=== PATIENT | female | born 1975 | race Caucasian/White ===

== ENCOUNTER 2018-02-17 07:58 | Emergency (ER) | payer MEDICAID ==
[2018-02-17 09:02] LABS: ADD MAN DIFF? NO
[2018-02-17 09:07] LABS: BASOPHIL # 0.1 10^3/ul (0.0-0.1); BASOPHILS % 0.8 % (0.0-2.0); EOSINOPHILS # 1.2 10^3/ul (0.0-0.5); EOSINOPHILS % 13.2 % (0.0-7.0); HEMATOCRIT 40.1 % (37.0-47.0); HEMOGLOBIN 13.4 g/dl (12.0-16.0); LYMPHOCYTES # 2.6 10^3/ul (0.8-2.9); LYMPHOCYTES % 29.3 % (15.0-51.0); MEAN CORPUSCULAR HEMOGLOBIN 30.1 pg (29.0-33.0); MEAN CORPUSCULAR HGB CONC 33.4 g/dl (32.0-37.0); MEAN CORPUSCULAR VOLUME 90.1 fl (82.0-101.0); MEAN PLATELET VOLUME 10.1 fl (7.4-10.4); MONOCYTE # 0.7 10^3/ul (0.3-0.9); MONOCYTES % 7.7 % (0.0-11.0); NEUTROPHIL # 4.4 10^3/ul (1.6-7.5); NEUTROPHILS % 48.7 % (39.0-77.0); PLATELET COUNT 333 10^3/UL (140-415); RED BLOOD COUNT 4.45 10^6/ul (4.20-5.40); RED CELL DISTRIBUTION WIDTH 12.4 % (11.5-14.5)
[2018-02-17 09:16] LABS: ADD UMIC YES; UR ASCORBIC ACID NEGATIVE (NEGATIVE); UR BILIRUBIN (Dip) NEGATIVE (NEGATIVE); UR BLOOD (Dip) 3+ mg/dL (NEGATIVE); UR CLARITY SLIGHTLY CLOUDY (CLEAR); UR COLOR YELLOW (YELLOW); UR GLUCOSE (Dip) NEGATIVE (NEGATIVE); UR KETONES (Dip) NEGATIVE (NEGATIVE); UR LEUKOCYTE ESTERASE (Dip) NEGATIVE Leu/ul (NEGATIVE); UR MUCUS MODERATE /HPF (NONE SEEN); UR NITRITE (Dip) NEGATIVE (NEGATIVE); UR RBC 6 /HPF (0-5); UR SPECIFIC GRAVITY (Dip) 1.024 (1.003-1.030); UR SQUAMOUS EPITHELIAL CELL FEW /HPF (FEW); UR TOTAL PROTEIN (Dip) 1+ mg/dl (NEGATIVE); UR UROBILINOGEN (Dip) 1+ mg/dL (NEGATIVE); UR WBC 3 /HPF (0-5)
== END 2018-02-17 11:57 | disposition home or self-care (01) ==
LOC: FTE 07:58
DX: O20.9 Hemorrhage in early pregnancy, unspecified (principal); J45.909 Unspecified asthma, uncomplicated; O99.511 Diseases of the respiratory system complicating pregnancy, first trimester; O24.311 Unspecified pre-existing diabetes mellitus in pregnancy, first trimester; E03.9 Hypothyroidism, unspecified; O99.281 Endocrine, nutritional and metabolic diseases complicating pregnancy, first trimester
CPT/HCPCS: 36415; 76801; 76817; 81001; 84702; 85025; 86900; 86901; 99284-25

== ENCOUNTER 2018-02-19 17:56 | Observation (INO) | payer MEDICAID ==
[2018-02-19] MEDS: KETOROLAC 30 MG INJ IM (18:43)
[2018-02-19 18:45] LABS: ADD MAN DIFF? NO
[2018-02-19 18:48] LABS: BASOPHIL # 0.1 10^3/ul (0.0-0.1); BASOPHILS % 0.5 % (0.0-2.0); EOSINOPHILS # 0.6 10^3/ul (0.0-0.5); EOSINOPHILS % 5.5 % (0.0-7.0); HEMATOCRIT 36.2 % (37.0-47.0); HEMOGLOBIN 12.1 g/dl (12.0-16.0); LYMPHOCYTES # 3.7 10^3/ul (0.8-2.9); LYMPHOCYTES % 34.4 % (15.0-51.0); MEAN CORPUSCULAR HGB CONC 33.4 g/dl (32.0-37.0); MEAN CORPUSCULAR VOLUME 89.8 fl (82.0-101.0); MEAN PLATELET VOLUME 9.9 fl (7.4-10.4); MONOCYTE # 0.6 10^3/ul (0.3-0.9); MONOCYTES % 5.9 % (0.0-11.0); NEUTROPHIL # 5.7 10^3/ul (1.6-7.5); NEUTROPHILS % 53.5 % (39.0-77.0); PLATELET COUNT 329 10^3/UL (140-415); RED BLOOD COUNT 4.03 10^6/ul (4.20-5.40); RED CELL DISTRIBUTION WIDTH 12.2 % (11.5-14.5)
[2018-02-19 18:48] LABS: WHITE BLOOD COUNT 10.7 10^3/ul (4.8-10.8)
[2018-02-19 18:59] LABS: ADD UMIC YES; UR ASCORBIC ACID NEGATIVE (NEGATIVE); UR BACTERIA FEW /HPF (NONE SEEN); UR BILIRUBIN (Dip) NEGATIVE (NEGATIVE); UR BLOOD (Dip) 3+ mg/dL (NEGATIVE); UR CLARITY SLIGHTLY CLOUDY (CLEAR); UR COLOR YELLOW (YELLOW); UR GLUCOSE (Dip) NEGATIVE (NEGATIVE); UR KETONES (Dip) TRACE mg/dL (NEGATIVE); UR LEUKOCYTE ESTERASE (Dip) NEGATIVE Leu/ul (NEGATIVE); UR MUCUS FEW /HPF (NONE SEEN); UR NITRITE (Dip) NEGATIVE (NEGATIVE); UR RBC > 182 /HPF (0-5); UR SPECIFIC GRAVITY (Dip) 1.019 (1.003-1.030); UR SQUAMOUS EPITHELIAL CELL FEW /HPF (FEW); UR TOTAL PROTEIN (Dip) NEGATIVE (NEGATIVE); UR UROBILINOGEN (Dip) NEGATIVE (NEGATIVE); UR WBC 6 /HPF (0-5)
[2018-02-19 19:10] LABS: ALANINE AMINOTRANSFERASE 27 IU/L (13-69); ALBUMIN 4.3 g/dl (3.3-4.9); ALKALINE PHOSPHATASE 80 IU/L (42-121); ANION GAP 9 (5-13); ASPARTATE AMINO TRANSFERASE 26 IU/L (15-46); BILIRUBIN,INDIRECT 0.2 mg/dl (0-1.1); BILIRUBIN,TOTAL 0.2 mg/dl (0.2-1.3); BLOOD UREA NITROGEN 11 mg/dl (7-20); CALCIUM 9.1 mg/dl (8.4-10.2); CARBON DIOXIDE 31 mmol/L (21-31); CHLORIDE 100 mmol/L (97-110); CREATININE 0.49 mg/dl (0.44-1.00); Estimated GFR > 60 mL/min (>60); GLUCOSE 85 mg/dl (70-220); LIPASE 50 U/L (23-300); POTASSIUM 3.8 mmol/L (3.5-5.1); SODIUM 140 mmol/L (135-144); TOTAL PROTEIN 7.6 g/dl (6.1-8.1)
[2018-02-19] MEDS ORDERED: KETOROLAC 30 MG INJ IV (21:30)
[2018-02-19] MEDS ORDERED: ACETAMINOPHEN 325 MG TAB PO (21:30)
[2018-02-20] MEDS: SOD CHLORIDE 0.9% 1,000 ML IV (01:58)
[2018-02-20] MEDS: ACCU-CHEK XX ×5 (05:24→21:00)
[2018-02-20] MEDS ORDERED: OXYTOCIN 10 UNIT INJ ×2 (07:00→19:47)
[2018-02-20] MEDS: HYDROmorphONE 1 MG/ML SYG IV (10:42)
[2018-02-20] MEDS: ONDANSETRON 4 MG INJ IV ×2 (14:41→22:25)
[2018-02-20] MEDS ORDERED: METOCLOPRAMIDE 10 MG INJ IV (19:00)
[2018-02-20] MEDS ORDERED: FENTAnyl 50 MCG/ML VIAL IV ×2 (19:00)
[2018-02-20] MEDS ORDERED: HYDROmorphONE 1 MG/5 ML IV SYRINGE IV (19:00)
[2018-02-20] MEDS ORDERED: ONDANSETRON 4 MG INJ IV (19:00)
[2018-02-20] MEDS ORDERED: FENTAnyl 50 MCG/ML VIAL (19:13)
[2018-02-20] MEDS ORDERED: PROPOFOL 20 ML (19:45)
[2018-02-20] MEDS ORDERED: SUCCINYLCHOLINE CHLORIDE 100 MG/5 ML SYG IV (19:45)
[2018-02-20] MEDS ORDERED: VASOPRESSIN 20 UNITS INJ (19:46)
[2018-02-20] MEDS: HYDROmorphONE 1 MG/5 ML IV SYRINGE IV (20:28)
[2018-02-20] MEDS ORDERED: HYDROCODONE/APAP (5/325) TAB PO (22:00)
[2018-02-20] MEDS ORDERED: DEXTROSE 50% 50 ML SYRINGE IV ×2 (22:30)
[2018-02-20] MEDS ORDERED: GLUCOSE GEL 15 GRAM TUBE BUCCAL (22:30)
[2018-02-20] MEDS ORDERED: GLUCOSE GEL 15 GRAM TUBE PO ×2 (22:30)
[2018-02-20] MEDS ORDERED: GLUCAGON 1 MG INJ IM (22:30)
[2018-02-21] MEDS: ACCU-CHEK XX (02:00)
[2018-02-21] MEDS: INSULIN ASPART [NOVOLOG] 3 ML PEN SC ×2 (08:00→12:00)
[2018-02-21] MEDS: HYDROCODONE/APAP (5/325) TAB PO (08:27)
[2018-02-21] MEDS: INFLUENZA VIRUS VACCINE 0.5 ML (DISPENSING) IM* (09:26)
[2018-02-21] MEDS: ONDANSETRON 4 MG INJ IV (11:22)
[2018-02-21] MEDS: ACETAMINOPHEN 325 MG TAB PO (12:35)
== END 2018-02-21 16:20 | disposition home or self-care (01) ==
LOC: FTE 17:56 → PP2 21:10
DX: O02.1 Missed abortion (principal); E11.9 Type 2 diabetes mellitus without complications; E03.9 Hypothyroidism, unspecified; Z23 Encounter for immunization
CPT/HCPCS: 36415; 76830; 76856; 80053; 81001; 82962; 83690; 84702; 85025; 88305; 90686; 96372; 99285-25; G0378

== ENCOUNTER 2018-06-06 07:59 | Emergency (ER) | payer MEDICAID | END 2018-06-06 11:48 | disposition home or self-care (01) | LOC: FTE 07:59 | DX: R05 Cough (principal); J45.909 Unspecified asthma, uncomplicated; E11.9 Type 2 diabetes mellitus without complications; M79.601 Pain in right arm | CPT/HCPCS: 73060; 73060-RT; 99283-25 ==

== ENCOUNTER 2018-07-07 08:00 | Emergency (ER) | payer MEDICAID | END 2018-07-07 09:16 | disposition home or self-care (01) | LOC: FTE 09:16 | DX: J40 Bronchitis, not specified as acute or chronic (principal) | CPT/HCPCS: 99283; Z7502 ==